=== PATIENT | male | born 1995 | race Caucasian/White ===

== ENCOUNTER 2017-01-23 19:22 | Emergency (ER) | payer OTHER ==
[~2017-01-23] VITALS: Ht 182.9 cm; Wt 121.6 kg
[2017-01-23 19:22] VITALS: BP 141/65
[2017-01-23] MEDS ORDERED: HYDROcodone/APAP 5/325MG 1 TAB TABLET PO ONE (20:30)
[2017-01-23] MEDS ORDERED: HYDR-971 PO (20:59)
[2017-01-23] MEDS ORDERED: IBUP600T16 PO (20:59)
--- NOTE | 2017-01-23 20:59 | PHYS DOC ---
Past History Past Medical History: No Pertinent History Past Surgical History: Other Alcohol Use: Rarely Drug Use: None Adult General Chief Complaint Chief Complaint: KNEE INJURY HPI HPI Patient is a 21-year-old gentleman with history significant for left knee injury. Since here today secondary to pain to his right knee while playing basketball. Patient reports he is not sure exactly what happened but his knees fell out while he was playing basketball. Patient reports no history of high blood pressure diabetes lung, liver, kidney problems. Patient reports she's got significant pain to his right knee. Patient denies any other trauma or pain. Review of systems: Constitutional: Denies fever or chills Eyes: Denies change in visual acuity, redness, or eye pain HENT: Denies nasal congestion or sore throat Respiratory: Denies cough or shortness of breath All other systems were reviewed and found to be within normal limits, except as documented in this note. Physical exam: Constitutional: Well developed, well nourished, no acute distress, non-toxic appearance. HENT: Normocephalic, atraumatic, bilateral external ears normal, nose normal. Eyes: PERRLA, EOMI, conjunctiva normal, no discharge. Neck: Normal range of motion, no tenderness, supple, no stridor. Cardiovascular: Heart rate regular rhythm, Lungs & Thorax: Bilateral breath sounds clear to auscultation Abdomen: No abdominal distention. Skin: Warm, dry, no erythema, no rash. Back: Normal spinal curvature Extremities: No tenderness, no cyanosis, no clubbing, ROM intact, no edema. Neurologic: Alert and oriented X 3, normal motor function, normal sensory function, no focal deficits noted. Psychologic: Affect normal, judgement normal, mood normal. Patient's ER physical exam was most remarkable: Patient has no appreciable knee effusion. Patient does have tenderness to palpation to the medial aspect of his right knee with medial stress her. Patient has no tenderness palpation with anterior posterior drawer. Patient has no tenderness to palpation with lateral stress. Right knee x-ray as interpreted by ER physician reveals: No acute fracture dislocation. Assessment and plan: 1. 21-year-old gentleman with a right likely ligamentous injury. Patient's discomfort appears to be greatest in his medial collateral the abdomen. There does not appear to be any significant laxity on examination area and I have discussed with the patient that we will need to initiate conservative therapy initially with pain management, crutches, knee immobilizer and he'll be able to be discharged home with pain medicines. Patient be instructed to follow-up with orthopedics in one to 2 weeks for reevaluation and assessment for possible MRI/ physical therapy. Patient is otherwise neurologically intact. Current Medications Current Medications Current Medications Medications (Trade) Dose Ordered Sig/Zaheer Start Time Stop Time Status Last Admin Dose Admin Acetaminophen/ Hydrocodone Bitart (Lortab 5/325) 1 tab 1X ONCE 01/23/17 20:30 01/23/17 20:31 DC Allergies Allergies Allergies Coded Allergies Type Severity Reaction Last Updated Verified No Known Drug Allergies 01/23/17 No Current Patient Data Vital Signs Vital Signs Date Time Temp Pulse Resp B/P (MAP) Pulse Ox O2 Delivery O2 Flow Rate FiO2 01/23/17 19:22 100.0 104 20 97 Room Air EKG EKG [] Radiology/Procedures Radiology/Procedures [] Course & Med Decision Making Course & Med Decision Making Pertinent Labs and Imaging studies reviewed. (See chart for details) [] Dragon Disclaimer Dragon Disclaimer This electronic medical record was generated, in whole or in part, using a voice recognition dictation system. Departure Departure: Impression: Primary Impression: Injury of ligament of right knee Disposition: HOME, SELF-CARE Condition: IMPROVED Referrals: NON,STAFF (PCP) Patient Instructions: Combined Knee Ligament Sprain-SportsMed, Crutch Use, Knee Immobilizer, Ribp-ru-Jlko, Knee Sprain Scripts Hydrocodone Bit/Acetaminophen (NORCO 5-325 TABLET) 1 Each Tablet 1 TAB PO PRN Q6HRS Y for PAIN, #12 TAB 0 Refills Prov: GUZMAN WALKER MD 01/23/17 Ibuprofen (IBUPROFEN) 600 Mg Tablet 600 MG PO QID Y for PAIN, #30 Prov: GUZMAN WALKER MD 01/23/17 GUZMAN WALKER MD Jan 23, 2017 20:59
--- NOTE | 2017-01-24 08:11 | RAD ---
4 views right knee 01/23/2017 9:53 PM Indication: fall injury Comparison: None Findings: There is no fracture or dislocation identified. Minimal lateral tilt of the patella is noted, most likely not clinically significant. Articular surfaces are uninterrupted. Soft tissues are unremarkable. Impression: No radiographic evidence of acute osseous abnormality
== END 2017-01-23 21:27 | disposition home or self-care (01) ==
LOC: ER 19:22
DX: S89.91XA Unspecified injury of right lower leg, initial encounter (principal); X58.XXXA Exposure to other specified factors, initial encounter; Y93.67 Activity, basketball; Y99.8 Other external cause status; Y92.89 Other specified places as the place of occurrence of the external cause
CPT/HCPCS: 29505; 73564; 99284-25